=== PATIENT | female | born 2000 | race Caucasian/White ===

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

== ENCOUNTER 2020-09-02 05:46 | Day surgery (SDC) | payer MEDICAID ==
[~2020-09-02 05:46] MED LIST: Acetaminophen 500 MG Tab PO ONE
[2020-09-02] MEDS ORDERED: Dextrose 5%-Lactated Ringers 1,000 ML IV SCH (06:30)
[2020-09-02] MEDS ORDERED: Lidocaine 1% with EPINEPHrine 1:100,000 50 ML MDV ONE (06:34)
[2020-09-02] MEDS ORDERED: Meropenem 500 MG SDV ONE (06:34)
[2020-09-02] MEDS ORDERED: Bupivacaine 0.5% 50 ML MDV ONE (06:34)
[2020-09-02] MEDS ORDERED: fentaNYL 250 MCG/5 ML SDV ONE (07:13)
[2020-09-02] MEDS ORDERED: Rocuronium 50 MG/5 ML Vial ONE (07:14)
[2020-09-02] MEDS ORDERED: Glycopyrrolate 0.2 MG/ML 5 ML MDV ONE (07:14)
[2020-09-02] MEDS ORDERED: Propofol 200 MG/20 ML SDV ONE (07:14)
[2020-09-02] MEDS ORDERED: Neostigmine Methylsulfate 1 MG/ML 5 ML Syringe ONE (07:14)
[2020-09-02] MEDS ORDERED: Ondansetron 4 MG/2 ML SDV ONE (07:14)
[2020-09-02] MEDS ORDERED: Dexamethasone 4 MG/ML SDV ONE (07:14)
[2020-09-02] MEDS ORDERED: ceFAZolin 2 GM in Sodium Chloride 0.9% 100 ML IV ONE (07:15)
[2020-09-02] MEDS ORDERED: Ketamine 500 MG/5 ML MDV IV SCH (07:30)
[2020-09-02] MEDS ORDERED: Ketamine 50 MG in Sodium Chloride 0.9% 49.5 ML IV SCH (07:30)
[2020-09-02] MEDS ORDERED: ceFAZolin 2 GM in Premix Bag 1 BAG IV ONE (07:30)
[2020-09-02] MEDS ORDERED: Ropivacaine 22 ML, dexAMETHasone 8 MG, EPINEPHrine 0.4 MG, Sodium Chloride 0.9% 55.6 ML NERVRT SCH ×4 (07:30)
[2020-09-02] MEDS ORDERED: Sugammadex Sodium 200 MG/2 ML VIAL ONE (07:53)
[2020-09-02] MEDS ORDERED: Ketorolac 60 MG/2 ML SDV IM ONE (08:10)
[2020-09-02] MEDS ORDERED: HYDROmorphone 2 MG Tab PO ONE (09:25)
[2020-09-02 09:49] VITALS: BP 99/60; PULSE 68
--- NOTE | 2020-09-15 14:44 | OR ---
DATE OF PROCEDURE: 09/02/2020 SURGEON: Elias Funes MD PREOPERATIVE DIAGNOSIS: Incisional hernia. POSTOPERATIVE DIAGNOSES: 1. Incarcerated incisional hernia. 2. 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 OPERATIVE PROCEDURE: Exploration of right lateral Pfannenstiel incision with: 1. Repair of incarcerated incisional hernia with mesh ([id number], [id number]). 2. Excision of portion of right ilioinguinal nerve ([id number]). ANESTHESIA: General. CEMENT FINISHER APPRENTICE: Shelli Hogue PA-C INDICATIONS FOR PROCEDURE: A 20-year-old status post previous Pfannenstiel incision for a section, presenting with pain in the lateral aspect. There is some bulge and tender scar present. On inspection, this is probably a focal incisional hernia along with some entrapment of the nerve in that area, most likely the ilioinguinal nerve. The plan is to proceed with an exploration and repair of hernia and excision of the nerve if identified. Potential risks including bleeding, infection, injury to underlying viscera, problems with persistent pain postoperatively were all gone over, and the patient wishes to proceed. DETAILS OF PROCEDURE: The patient was taken to the operating room, placed in a supine position. After general endotracheal anesthesia was induced, the lower abdomen was prepped and draped. Lateral aspect of previous Pfannenstiel incision on the right side was then made and carried down through the skin, subcutaneous tissue. The external oblique aponeurosis was then divided and subaponeurotic flaps were raised superiorly and inferiorly. A nodular area consisting of some scar with visible nerve entering it was then identified. That scar along with this nerve was then excised after the lateral aspect of the incision. Underlying this, the patient had a small incarcerated incisional hernia containing some preperitoneal fat. This was reduced and a medium mesh plug was then placed into the defect and underlying fascia with 0 Vicryl horizontal mattress sutures. The fascial dehiscence was then closed with a 0 Vicryl stitch as well and the external oblique aponeurosis was approximated with 3-0 Vicryl stitch and the skin with 4-0 Vicryl subcuticular stitch. Dressing was applied along with some local anesthetic and the patient was taken to the recovery room in satisfactory condition. Physician assistant professor of nursing, Shelli Hogue, played an essential role in assisting in this case, helping to position the patient, retract structures as needed, as well as suturing and cutting sutures when indicated. Her presence improved patient safety and decreased operative time. Elias Funes MD /[id number]
== END 2020-09-02 10:15 | disposition home or self-care (01) ==
LOC: JP.SDS 05:46
PROVIDERS: ATTEND Surgery
DX: K43.0 Incisional hernia with obstruction, without gangrene (principal); G57.81 Other specified mononeuropathies of right lower limb; Z88.8 Allergy status to other drugs, medicaments and biological substances; F17.210 Nicotine dependence, cigarettes, uncomplicated; G47.9 Sleep disorder, unspecified
CPT/HCPCS: 36415; 49561; 49568; 64772; 80053; 81025; 83735; 84100; 85027; 88302; A9270; C1781; J0690; J1100; J1885; J2405; J2704; J2710; J3010; J3490; J7121; J0171; J2020; J2185; J2795

== ENCOUNTER 2021-09-18 19:04 | Emergency (ER) | payer MEDICAID ==
[2021-09-18 19:21] VITALS: BP 119/70; PULSE 102
[2021-09-18 20:09] LABS: ESTIMATED GFR 137 mL/min (>60)
[2021-09-18 20:23] LABS: CORONAVIRUS COVID-19 NAA POSITIVE (NEGATIVE)
== END 2021-09-18 20:45 | disposition home or self-care (01) ==
LOC: JP.ED 19:04
DX: O98.512 Other viral diseases complicating pregnancy, second trimester (principal); U07.1 COVID-19; O99.332 Smoking (tobacco) complicating pregnancy, second trimester; F17.210 Nicotine dependence, cigarettes, uncomplicated; Z3A.17 17 weeks gestation of pregnancy
CPT/HCPCS: 0241U; 36415; 80053; 81001; 82947; 84439; 84443; 85025; 86140; 99282; 99284

== ENCOUNTER 2022-07-01 03:40 | Emergency (ER) | payer MEDICAID ==
[2022-07-01 04:01] VITALS: BP 119/80; PULSE 84
[2022-07-01] MEDS ORDERED: Prochlorperazine 10 MG/2 ML SDV IVPUSH ONE (04:21)
[2022-07-01] MEDS ORDERED: Dexamethasone 4 MG/ML SDV IVPUSH ONE (04:21)
[2022-07-01] MEDS ORDERED: Sodium Chloride 0.9% 10 ML Syringe FLUSH PRN (04:21)
[2022-07-01] MEDS ORDERED: Ketorolac 15 MG/ML SDV IVPUSH ONE (04:21)
[2022-07-01] MEDS ORDERED: Sodium Chloride 0.9% 1,000 ML IV SCH (04:30)
== END 2022-07-01 05:59 | disposition home or self-care (01) ==
LOC: JP.ED 03:40
DX: G43.909 Migraine, unspecified, not intractable, without status migrainosus (principal); H69.93 Unspecified Eustachian tube disorder, bilateral; J45.909 Unspecified asthma, uncomplicated; F17.210 Nicotine dependence, cigarettes, uncomplicated; Z86.16 Personal history of COVID-19; Z88.8 Allergy status to other drugs, medicaments and biological substances
CPT/HCPCS: 96361; 96374; 96375; 99282; 99283; J0780; J1100; J1885; J3490; J7030

== ENCOUNTER 2022-09-19 22:28 | Emergency (ER) | payer MEDICAID | END 2022-09-19 23:42 | disposition left against medical advice (07) | LOC: JP.ED 22:28 | DX: Z53.21 Procedure and treatment not carried out due to patient leaving prior to being seen by health care provider (principal) ==

== ENCOUNTER 2023-03-15 21:05 | Emergency (ER) | payer MEDICAID ==
[2023-03-15 21:41] VITALS: BP 102/70; PULSE 94
== END 2023-03-15 22:12 | disposition home or self-care (01) ==
LOC: JP.ED 21:05
DX: K04.7 Periapical abscess without sinus (principal); Z86.16 Personal history of COVID-19; Z87.891 Personal history of nicotine dependence; Z88.8 Allergy status to other drugs, medicaments and biological substances
CPT/HCPCS: 99282; 99283

== ENCOUNTER 2023-03-17 22:43 | Emergency (ER) | payer MEDICAID ==
[2023-03-17 22:57] VITALS: BP 116/71; PULSE 112
== END 2023-03-17 23:23 | disposition home or self-care (01) ==
LOC: JP.ED 22:43
DX: K08.89 Other specified disorders of teeth and supporting structures (principal); Z86.16 Personal history of COVID-19; Z88.8 Allergy status to other drugs, medicaments and biological substances
CPT/HCPCS: 99282

== ENCOUNTER 2023-11-07 17:26 | Emergency (ER) | payer MEDICAID ==
[2023-11-07 18:05] VITALS: BP 97/50; PULSE 84
== END 2023-11-07 18:14 | disposition left against medical advice (07) ==
LOC: JP.ED 17:26
DX: Z53.21 Procedure and treatment not carried out due to patient leaving prior to being seen by health care provider (principal)

== ENCOUNTER 2024-01-29 19:43 | Emergency (ER) | payer MEDICAID ==
[2024-01-29 20:03] VITALS: BP 100/71; PULSE 89
[2024-01-29] MEDS: Ketorolac 30 MG/ML SDV IM ONE (20:50)
[2024-01-29] MEDS: droPERidol 5 MG/2 ML SDV IM ONE (20:51)
== END 2024-01-29 21:14 | disposition home or self-care (01) ==
LOC: JP.ED 19:43
DX: G43.909 Migraine, unspecified, not intractable, without status migrainosus (principal); J45.909 Unspecified asthma, uncomplicated; Z86.16 Personal history of COVID-19; Z88.6 Allergy status to analgesic agent
CPT/HCPCS: 96372; 99283; J1790; J1885

== ENCOUNTER 2024-02-05 20:49 | Emergency (ER) | payer MEDICAID ==
[2024-02-05 21:01] VITALS: BP 109/68; PULSE 75
== END 2024-02-05 21:49 | disposition home or self-care (01) ==
LOC: JP.ED 20:49
DX: K04.7 Periapical abscess without sinus (principal); J45.909 Unspecified asthma, uncomplicated; Z86.16 Personal history of COVID-19; Z88.8 Allergy status to other drugs, medicaments and biological substances
CPT/HCPCS: 99282; 99283

== ENCOUNTER 2025-01-14 20:15 | Emergency (ER) | payer MEDICAID ==
[2025-01-14] MEDS ORDERED: Ketorolac 15 MG/ML SDV IM ONE (21:06)
[2025-01-14 21:09] LABS: BASOPHILS ABSOLUTE AUTO 0.04 K/uL (0.00-0.10); BASOPHILS PERCENT AUTO 0.4 % (0.1-1.3); EOSINOPHILS ABSOLUTE AUTO 0.36 K/uL (0.00-0.40); EOSINOPHILS PERCENT AUTO 3.6 % (0.0-5.4); IMMATURE GRAN PERCENT AUTO 0.2 % (0.0-0.7); LYMPHOCYTES ABSOLUTE AUTO 3.31 K/uL (0.8-3.3); LYMPHOCYTES PERCENT AUTO 32.8 % (11.4-47.7); MONOCYTES ABSOLUTE AUTO 0.50 K/uL (0.20-0.90); MONOCYTES PERCENT AUTO 5.0 % (3.3-12.6); NEUTROPHILS ABSOLUTE AUTO 5.86 K/uL (1.0-7.6); NEUTROPHILS PERCENT AUTO 58.0 % (40.0-78.1); PLATELET COUNT,PLT 287 K/uL (130-375); RED BLOOD CELL COUNT 4.40 M/uL (3.77-5.24); WHITE BLOOD CELL COUNT,WBC 10.1 K/uL (3.2-11.0)
[2025-01-14 21:10] LABS: IMMATURE GRAN ABSOLUTE AUTO 0.02 K/uL (0.00-0.23)
[2025-01-14 21:29] LABS: APPEARANCE,URINE CLOUDY (CLEAR); GLUCOSE,URINE NEGATIVE (NEGATIVE); OCCULT BLOOD,URINE NEGATIVE (NEGATIVE)
[2025-01-14 21:32] LABS: A/G RATIO 1.2 (1.2-2.2); ALANINE AMINOTRANSFERASE,ALT 18 U/L (12-78); ASPARTATE AMNIOTRANSFERASE,AST 21 U/L (15-37); BILIRUBIN TOTAL 0.3 mg/dL (0.2-1.0); BLOOD UREA NITROGEN,BUN 10 mg/dL (7-18); CARBON DIOXIDE,CO2 28 mmol/L (21-32); CHLORIDE,CL 103 mmol/L (100-108); CREATININE 0.6 mg/dL (0.6-1.0); EST CRCL DRUG DOSING (CG) 114.35 mL/min; ESTIMATED GFR 128 mL/min (>60); GLUCOSE RANDOM 94 mg/dL (74-106); POTASSIUM,K 4.0 mmol/L (3.6-5.2); PROTEIN TOTAL,TP 7.5 g/dL (6.4-8.2); SODIUM,NA 139 mmol/L (140-148)
[2025-01-14 21:35] LABS: LACTIC ACID 0.5 mmol/L (0.4-2.0)
[2025-01-14] MEDS: Ketorolac 15 MG/ML SDV IVPUSH ONE (21:36)
[2025-01-14] MEDS: Ondansetron 4 MG/2 ML SDV IVPUSH ONE (21:38)
[2025-01-14 21:46] LABS: SQUAMOUS EPITHELIAL CELLS,UR MANY /HPF; UROTHELIAL CELLS,URINE NOT SEEN /HPF
[2025-01-14] MEDS: Sodium Chloride 0.9% 10 ML Syringe FLUSH ONE (22:17)
[2025-01-14] MEDS: Iopamidol 612 MG/ML 100 ML Bottle IV SCH (22:18)
[2025-01-14] MEDS: Sennosides/Docusate Sodium 50-8.6 MG Tab PO ONE (23:54)
[2025-01-15 00:39] VITALS: BP 96/55; PULSE 50
== END 2025-01-15 00:35 | disposition home or self-care (01) ==
LOC: JP.ED 20:15
DX: K59.00 Constipation, unspecified (principal); Z88.8 Allergy status to other drugs, medicaments and biological substances; Z90.710 Acquired absence of both cervix and uterus; Z86.16 Personal history of COVID-19
CPT/HCPCS: 36415; 74177; 80053; 81001; 83605; 85025; 96361; 96374; 96375; 99284; A9270; J1885; J2405; J7030; Q9967

== ENCOUNTER 2025-02-12 20:58 | Emergency (ER) | payer MEDICAID ==
[2025-02-12 21:33] VITALS: BP 99/60; PULSE 77
[2025-02-12 21:37] LABS: APPEARANCE,URINE TURBID (CLEAR); GLUCOSE,URINE NEGATIVE (NEGATIVE); OCCULT BLOOD,URINE SMALL (NEGATIVE)
[2025-02-12 21:38] LABS: SQUAMOUS EPITHELIAL CELLS,UR MODERATE /HPF; UROTHELIAL CELLS,URINE NOT SEEN /HPF
== END 2025-02-12 22:00 | disposition home or self-care (01) ==
LOC: JP.ED 20:58
DX: N39.0 Urinary tract infection, site not specified (principal); Z88.8 Allergy status to other drugs, medicaments and biological substances; Z86.16 Personal history of COVID-19
CPT/HCPCS: 81001; 87086; 87088; 87186; 99283